=== PATIENT | male | born 1945 | race Caucasian/White ===

== ENCOUNTER 2021-05-08 08:48 | Day surgery (SDC) | payer MEDICARE ==
[2021-05-05 13:38] LABS: BASOPHILS % (AUTO) 0.6 % (0.0-5.0); EOSINOPHILS % (AUTO) 1.9 % (0.0-8.0); LYMPHOCYTES % (AUTO) 25.5 % (21.0-51.0); MEAN CORPUSCULAR HEMOGLOBIN 30.9 pg (27.0-33.0); MEAN CORPUSCULAR HGB CONC 33.1 g/dL (32.0-36.0); MEAN CORPUSCULAR VOLUME 93.4 fL (79-99); MONOCYTES % (AUTO) 7.3 % (3.0-13.0); NEUTROPHILS % (AUTO) 64.4 % (40.0-77.0); PLATELET COUNT (AUTO) 177 K/uL (130-400); RED BLOOD CELL COUNT(AUTO) 4.82 MIL/uL (4.50-6.20); RED CELL DISTRIBUTION WIDTH 14.1 % (11.0-15.5); WHITE BLOOD COUNT (AUTO) 7.8 K/uL (4.8-10.8)
[2021-05-05 13:47] LABS: POTASSIUM 4.2 mmol/L (3.5-5.1)
[2021-05-07 11:21] VITALS: BP 146/74
[~2021-05-08] VITALS: Ht 165.1 cm; Wt 72.8 kg
[2021-05-08] VITALS (16 sets, daily range): BP systolic 126–198; BP diastolic 72–112
[~2021-05-08 08:48] MED LIST: ASCO100031 PO; CHOL2000 PO; MECO10005 PO; MVI PO; OMEG-148 PO; TAMS-1 PO; ZINC50TA71 PO; [UNRECOGNIZED DRUG - CODE] PO
[2021-05-08] MEDS ORDERED: LACTATED RINGERS 1000ML 1,000 ML IV ONE (09:24)
[2021-05-08] MEDS: CEFTRIAXONE 1G VIAL IVP SCH ×2 (09:30→10:35)
[2021-05-08] MEDS ORDERED: LIDOCAINE PF 100MG/5ML (2%) SYRINGE 5ML ONE (10:31)
[2021-05-08] MEDS ORDERED: SUCCINYLCHOLINE 200MG/10ML SYR ONE (10:31)
[2021-05-08] MEDS ORDERED: PROPOFOL 10 MG/ML 20ML VIAL IV ONE (10:31)
[2021-05-08] MEDS ORDERED: ROCURONIUM 10MG/1ML SYR 10 MG/ML ML ONE (10:31)
[2021-05-08] MEDS ORDERED: ONDANSETRON 4MG INJ ONE (10:40)
[2021-05-08] MEDS ORDERED: DEXAMETHASONE SOD PHOSPHATE 10MG/ML 1ML VIAL ONE (10:40)
[2021-05-08] MEDS ORDERED: GLYCOPYRROLATE 1 MG/5 ML SYRINGE ONE (10:42)
[2021-05-08] MEDS ORDERED: EPHEDRINE SULFATE 50 MG/ML AMPULE ONE (10:46)
[2021-05-08] MEDS ORDERED: NEOSTIGMINE 5MG/5ML SYR IV ONE (11:12)
[2021-05-08] MEDS ORDERED: SUGAMMADEX SODIUM 200 MG/2 ML VIAL IV ONE (11:16)
[2021-05-08] MEDS ORDERED: HYDRALAZINE 20MG/ML VIAL ONE (11:33)
[2021-05-08] MEDS ORDERED: MEPERIDINE-PF 25 MG/ML SYG ONE (11:42)
[2021-05-08] MEDS ORDERED: PHENAZOPYRIDINE HCL 200 MG TABLET ONE (12:36)
== END 2021-05-08 13:10 | disposition home or self-care (01) ==
LOC: DAH 08:48
PROVIDERS: ATTEND Urology
DX: C67.2 Malignant neoplasm of lateral wall of bladder (principal); C67.4 Malignant neoplasm of posterior wall of bladder; Z20.822 Contact with and (suspected) exposure to COVID-19; N30.21 Other chronic cystitis with hematuria; I73.9 Peripheral vascular disease, unspecified; K21.9 Gastro-esophageal reflux disease without esophagitis; R31.29 Other microscopic hematuria; Z87.891 Personal history of nicotine dependence; Z90.49 Acquired absence of other specified parts of digestive tract; Z98.890 Other specified postprocedural states
CPT/HCPCS: 36415; 52234; 80048; 85025; 87635; 88305; 88341; 88342; 88360; 93005; A4215; A4221; A4222; A4223; A4344; A4354; A4358; A4510; A4600; A4663; C9803; J0330; J0360; J0696; J1100; J2001; J2175; J2405; J2704; J2710; J3490 ×2; J7120 ×2

== ENCOUNTER 2021-05-19 19:48 | Inpatient (IN) | payer MEDICARE ==
[~2021-05-19] VITALS: Ht 157.5 cm; Wt 74.9 kg
[~2021-05-19 19:48] MED LIST changes: -MVI PO; -OMEG-148 PO; -[UNRECOGNIZED DRUG - CODE] PO
[2021-05-19 20:50] LABS: BASOPHILS % (AUTO) 0.3 % (0.0-5.0); EOSINOPHILS % (AUTO) 0.1 % (0.0-8.0); HEMATOCRIT 42.4 % (42-54); LYMPHOCYTES % (AUTO) 3.9 % (21.0-51.0); MEAN CORPUSCULAR HEMOGLOBIN 31.1 pg (27.0-33.0); MEAN CORPUSCULAR VOLUME 91.6 fL (79-99); MONOCYTES % (AUTO) 6.9 % (3.0-13.0); NEUTROPHILS % (AUTO) 88.1 % (40.0-77.0); PLATELET COUNT (AUTO) 172 K/uL (130-400); RED BLOOD CELL COUNT(AUTO) 4.63 MIL/uL (4.50-6.20); RED CELL DISTRIBUTION WIDTH 13.8 % (11.0-15.5); WHITE BLOOD COUNT (AUTO) 22.4 K/uL (4.8-10.8)
[2021-05-19 20:52] LABS: APPEARANCE,URINE Cloudy (CLEAR); BILIRUBIN,URINE Negative (NEGATIVE); COLOR,URINE Yellow (YELLOW); GLUCOSE, URINE (UA) Negative (NEGATIVE); KETONES,URINE 15 mg/dL (NEGATIVE); LEUKOCYTE ESTERASE ,URINE Large (NEGATIVE); NITRATE,URINE Positive (NEGATIVE); OCCULT BLOOD,URINE Large (NEGATIVE); PROTEIN,URINE POS 1+ mg/dL (NEGATIVE)
[2021-05-19 20:59] LABS: CREATININE 1.2 mg/dL (0.5-1.5); POTASSIUM 3.5 mmol/L (3.5-5.1)
[2021-05-19 21:03] LABS: ALBUMIN 3.3 g/dL (3.5-5.0); BACTERIA,URINE Few /HPF (None Seen); BILIRUBIN,TOTAL 0.6 mg/dL (0.2-1.0); MUCUS,URINE Few LPF (None Seen); SQUAMOUS EPITHELIAL CELL,UR Rare /HPF (0-2); TOTAL PROTEIN, SERUM 7.2 g/dL (6.0-8.3); WBC,URINE 26-50 /HPF (0-1)
[2021-05-19] MEDS ORDERED: ZOSYN 3.375GM+NS 50ML 50 ML ONE (22:51)
[2021-05-19] MEDS ORDERED: 0.9%NACL 1000ML 1,638 ML IV ONE (23:00)
[2021-05-19] MEDS ORDERED: ZOSYN 3.375GM+NS 50ML 3.38 GM in 0.9%NACL 50ML 50 ML IV ONE (23:00)
[2021-05-20] MEDS ORDERED: ZOSYN 3.375GM+NS 50ML 50 ML ONE ×3 (04:26→20:48)
[2021-05-20] MEDS ORDERED: ACETAMINOPHEN 325 MG TAB PO PRN (04:30)
[2021-05-20] MEDS: 0.9%NACL 1000ML 1,000 ML IV SCH ×2 (04:42→20:00)
[2021-05-20] MEDS: ZOSYN 3.375GM+NS 50ML 3.38 GM in 0.9%NACL 50ML 50 ML IV SCH ×3 (05:04→20:53)
[2021-05-20] MEDS ORDERED: MAGNESIUM 2GM PREMIX 50ML 50 ML IV PRN (06:00)
[2021-05-20 06:28] LABS: BASOPHILS % (AUTO) 0.2 % (0.0-5.0); EOSINOPHILS % (AUTO) 0.6 % (0.0-8.0); HEMATOCRIT 39.5 % (42-54); LYMPHOCYTES % (AUTO) 7.9 % (21.0-51.0); MEAN CORPUSCULAR HEMOGLOBIN 30.9 pg (27.0-33.0); MEAN CORPUSCULAR HGB CONC 33.7 g/dL (32.0-36.0); MEAN CORPUSCULAR VOLUME 91.6 fL (79-99); MONOCYTES % (AUTO) 6.6 % (3.0-13.0); NEUTROPHILS % (AUTO) 84.2 % (40.0-77.0); PLATELET COUNT (AUTO) 168 K/uL (130-400); RED BLOOD CELL COUNT(AUTO) 4.31 MIL/uL (4.50-6.20); WHITE BLOOD COUNT (AUTO) 20.2 K/uL (4.8-10.8)
[2021-05-20 06:33] LABS: CREATININE 0.9 mg/dL (0.5-1.5); POTASSIUM 3.7 mmol/L (3.5-5.1)
[2021-05-20 06:37] LABS: ALBUMIN 2.8 g/dL (3.5-5.0); BILIRUBIN,TOTAL 0.8 mg/dL (0.2-1.0); TOTAL PROTEIN, SERUM 6.4 g/dL (6.0-8.3)
[2021-05-20] MEDS: FAMOTIDINE 20MG TAB PO SCH (09:29)
[2021-05-20] MEDS: ENOXAPARIN SODIUM 40 MG/0.4 ML SYRINGE SQ SCH (09:31)
[2021-05-20] MEDS ORDERED: RENAL DOSE IV PRN (13:30)
[2021-05-20] MEDS ORDERED: VANCOMYCIN PROTOCOL PER PHARMACY IV SCH (13:30)
[2021-05-20] MEDS ORDERED: 0.9%NACL 50ML 50 ML IV ONE (13:31)
[2021-05-20] MEDS: VANCOMYCIN 1G/250ML KIT 250 ML IV SCH (15:23)
[2021-05-20 16:10] VITALS: BP 132/66
[2021-05-20 20:00] VITALS: BP 134/80
[2021-05-21] VITALS: BP 135/71
[2021-05-21] MEDS: VANCOMYCIN 1G/250ML KIT 250 ML IV SCH ×2 (02:54→15:06)
[2021-05-21 04:00] VITALS: BP 137/78
[2021-05-21] MEDS: 0.9%NACL 1000ML 1,000 ML IV SCH (05:12)
[2021-05-21] MEDS: ZOSYN 3.375GM+NS 50ML 3.38 GM in 0.9%NACL 50ML 50 ML IV SCH ×3 (05:12→20:51)
[2021-05-21 05:15] LABS: HEMATOCRIT 37.9 % (42-54); MEAN CORPUSCULAR HEMOGLOBIN 30.8 pg (27.0-33.0); MEAN CORPUSCULAR HGB CONC 33.2 g/dL (32.0-36.0); MEAN CORPUSCULAR VOLUME 92.7 fL (79-99); RED BLOOD CELL COUNT(AUTO) 4.09 MIL/uL (4.50-6.20); RED CELL DISTRIBUTION WIDTH 14.1 % (11.0-15.5)
[2021-05-21 05:33] LABS: ALBUMIN 2.6 g/dL (3.5-5.0); BILIRUBIN,TOTAL 0.5 mg/dL (0.2-1.0); CREATININE 0.9 mg/dL (0.5-1.5); MAGNESIUM 2.1 mg/dL (1.80-2.40); POTASSIUM 3.4 mmol/L (3.5-5.1); TOTAL PROTEIN, SERUM 6.1 g/dL (6.0-8.3)
[2021-05-21] MEDS: KCL 20 MEQ ERTAB PO PRN ×3 (05:49→11:51)
[2021-05-21] MEDS ORDERED: POTASSIUM CHLORIDE 10% ELIXIR 20 MEQ/15 ML UDCUP PO PRN (06:00)
[2021-05-21] MEDS ORDERED: LIDOCAINE HCL-MPF 1% 2ML VIAL IV PRN (06:00)
[2021-05-21] MEDS ORDERED: POTASSIUM CHLORIDE 20MEQ/100ML 100 ML IV PRN (06:00)
[2021-05-21 08:00] VITALS: BP 151/76
[2021-05-21] MEDS: ASCORBIC ACID 500 MG TAB PO SCH (08:47)
[2021-05-21] MEDS: FINASTERIDE 5 MG TABLET PO SCH (08:47)
[2021-05-21] MEDS: FAMOTIDINE 20MG TAB PO SCH (08:48)
[2021-05-21] MEDS: TAMSULOSIN HCL 0.4 MG CAP.ER.24H PO SCH (08:48)
[2021-05-21] MEDS: ENOXAPARIN SODIUM 40 MG/0.4 ML SYRINGE SQ SCH (08:48)
[2021-05-21] MEDS: ZINC SULFATE 220 CAPSULE PO SCH (08:48)
[2021-05-21] MEDS ORDERED: **HM**(Cholecalciferol (Vitamin D3) (Vitamin D3) 50 MCG) PO SCH (09:00)
[2021-05-21] MEDS ORDERED: MECOBALAMIN 1000 MCG PO SCH (09:00)
[2021-05-21 12:00] VITALS: BP 132/72
[2021-05-21] MEDS ORDERED: 0.9% NACL 250ML 250 ML ONE (15:05)
[2021-05-21 15:51] VITALS: BP 128/71
[2021-05-21 20:00] VITALS: BP 136/76
[2021-05-22] VITALS: BP 152/89
[2021-05-22] MEDS ORDERED: 0.9% NACL 250ML 250 ML ONE (02:52)
[2021-05-22] MEDS: VANCOMYCIN 1G/250ML KIT 250 ML IV SCH (02:56)
[2021-05-22 04:00] VITALS: BP 162/75
[2021-05-22 05:01] LABS: HEMATOCRIT 36.9 % (42-54); MEAN CORPUSCULAR HEMOGLOBIN 30.6 pg (27.0-33.0); MEAN CORPUSCULAR HGB CONC 33.3 g/dL (32.0-36.0); MEAN CORPUSCULAR VOLUME 91.8 fL (79-99); RED BLOOD CELL COUNT(AUTO) 4.02 MIL/uL (4.50-6.20); RED CELL DISTRIBUTION WIDTH 13.9 % (11.0-15.5); WHITE BLOOD COUNT (AUTO) 11.6 K/uL (4.8-10.8)
[2021-05-22 05:12] LABS: CREATININE 0.9 mg/dL (0.5-1.5); POTASSIUM 3.7 mmol/L (3.5-5.1)
[2021-05-22] MEDS: ZOSYN 3.375GM+NS 50ML 3.38 GM in 0.9%NACL 50ML 50 ML IV SCH (05:31)
[2021-05-22 08:00] VITALS: BP 166/84
[2021-05-22] MEDS: ASCORBIC ACID 500 MG TAB PO SCH (10:35)
[2021-05-22] MEDS: ZINC SULFATE 220 CAPSULE PO SCH (10:35)
[2021-05-22] MEDS: FAMOTIDINE 20MG TAB PO SCH (10:35)
[2021-05-22] MEDS: TAMSULOSIN HCL 0.4 MG CAP.ER.24H PO SCH (10:35)
[2021-05-22] MEDS: FINASTERIDE 5 MG TABLET PO SCH (10:36)
[2021-05-22] MEDS: ENOXAPARIN SODIUM 40 MG/0.4 ML SYRINGE SQ SCH (10:36)
[2021-05-22 12:00] VITALS: BP 114/87
[2021-05-22 13:31] LABS: HEMATOCRIT 40.5 % (42-54); MEAN CORPUSCULAR HEMOGLOBIN 30.8 pg (27.0-33.0); MEAN CORPUSCULAR HGB CONC 33.8 g/dL (32.0-36.0); RED BLOOD CELL COUNT(AUTO) 4.45 MIL/uL (4.50-6.20); RED CELL DISTRIBUTION WIDTH 13.9 % (11.0-15.5); WHITE BLOOD COUNT (AUTO) 12.1 K/uL (4.8-10.8)
[2021-05-22 16:00] VITALS: BP 151/80
[2021-05-22] MEDS ORDERED: LEVOFLOXACIN 500 MG TABLET PO SCH (16:00)
[2021-05-22 20:00] VITALS: BP 154/81
[2021-05-23] VITALS: BP 162/84
[2021-05-23 04:37] VITALS: BP 157/64
[2021-05-23 05:05] LABS: HEMATOCRIT 38.6 % (42-54); MEAN CORPUSCULAR HEMOGLOBIN 30.5 pg (27.0-33.0); MEAN CORPUSCULAR HGB CONC 33.4 g/dL (32.0-36.0); MEAN CORPUSCULAR VOLUME 91.3 fL (79-99); RED BLOOD CELL COUNT(AUTO) 4.23 MIL/uL (4.50-6.20); RED CELL DISTRIBUTION WIDTH 13.7 % (11.0-15.5); WHITE BLOOD COUNT (AUTO) 8.5 K/uL (4.8-10.8)
[2021-05-23 08:18] VITALS: BP 150/80
[2021-05-23] MEDS ORDERED: LEVO750T46 PO (08:24)
== END 2021-05-23 08:45 | disposition home or self-care (01) | DRG 872 ==
LOC: EDH 19:48 → EDHIP 23:38 → OBSVTOIN 23:38 → 3DH 05-20 15:30
PROVIDERS: ADMIT Internal Medicine Pulmonary Disease; ATTEND Internal Medicine Pulmonary Disease
DX: A41.9 Sepsis, unspecified organism (principal); N39.0 Urinary tract infection, site not specified; N40.0 Benign prostatic hyperplasia without lower urinary tract symptoms; E87.6 Hypokalemia; F03.90 Unspecified dementia, unspecified severity, without behavioral disturbance, psychotic disturbance, mood disturbance, and anxiety; B96.5 Pseudomonas (aeruginosa) (mallei) (pseudomallei) as the cause of diseases classified elsewhere; E66.9 Obesity, unspecified; Z68.30 Body mass index [BMI] 30.0-30.9, adult
CPT/HCPCS: 36415; 71045; 80048; 80053; 81001; 83605; 83735; 83880; 84145; 84484; 85025; 85027; 87040; 87077; 87088; 87186; G0378; J1650; J2543; J3370; J7030; J7050